=== PATIENT | female | born 1980 | race Caucasian/White ===

== ENCOUNTER 2019-12-28 22:42 | Emergency (ER) | payer MEDICAID ==
[~2019-12-28] VITALS: Ht 165.1 cm; Wt 98.9 kg
[2019-12-28 23:00] VITALS: BP 156/89
[2019-12-28] MEDS ORDERED: LIDOCAINE 2% 1000 MG/50 ML VIAL INJ ONE (23:40)
[2019-12-28 23:59] VITALS: BP 156/89
--- NOTE | 2019-12-29 00:04 | NUR ---
39 Y/O F PRESENTS TO ED C/O MOUTH PAIN X 3 DAYS. PT WAS SEEN AT [facility] ON FRIDAY REGARDING MOUTH PAIN AND WAS DIAGNOSED WITH GINGIVITIS. PT STATES THAT SHE WAS PRESCRIBED PCN BUT WITH NO RELIEF. ALSO STATES THAT HER MOUTH HAS BEEN SWOLLEN EVER SINCE AND IS NOW STARTING TO FEEL NUMBNESS AND TINGLING ON HER MOUTH. PT IS 18 WEEKS , HAVE CARE AND TAKES VITAMINS. RR EVEN AND UNLABORED. BED LOCKED AND IN LOWEST POSITION, SIDE RAIL UPX1. WILL CONTINUE TO MONITOR. MHX: DENIES ALLERGIES: IODINE
--- NOTE | 2019-12-29 00:45 | NUR ---
Patient discharged with v/s stable. Written and verbal after care instructions given and explained. Patient verbalized understanding. Ambulatory with steady gait. All questions addressed prior to discharge. Advised to follow up with PMD.
== END 2019-12-29 00:45 | disposition home or self-care (01) ==
LOC: MED 22:42
DX: O99.612 Diseases of the digestive system complicating pregnancy, second trimester (principal); K04.7 Periapical abscess without sinus; K05.10 Chronic gingivitis, plaque induced; Z3A.18 18 weeks gestation of pregnancy; Z88.8 Allergy status to other drugs, medicaments and biological substances
CPT/HCPCS: 64400; 99284; J2001

== ENCOUNTER 2020-02-05 21:32 | Emergency (ER) | payer MEDICAID ==
[~2020-02-05] VITALS: Ht 165.1 cm; Wt 100.2 kg
--- NOTE | 2020-02-05 21:32 | NUR ---
[place]. TAKEN TO BED 1
[2020-02-05 21:35] VITALS: BP 146/64
--- NOTE | 2020-02-05 21:38 | NUR ---
HEART TONE 178 BPM VIA DOPPLER.
--- NOTE | 2020-02-05 21:39 | NUR ---
20 G ON THE RIGHT HAND PLACED BY EMS EN ROUTE.
--- NOTE | 2020-02-05 21:40 | NUR ---
39 Y/O FEMALE BIBA S/PO SEIZURE. UNK TIME. PER EMS REPORT, PT WAS FOUND ON THE FLOOR. INJURY ABOVE RT EYE OBSERVED. 5 MONTHS , DUE DATE 05/2020. . PT DENIES ANY VAGINAL BLEEDING OR DISCHARGE. PT AAOX4, AMBULATORY. RESPIRATIONS EVEN AND UNLABORED TO ROOM AIR. SKIN IS WARM, DRY, INTACT. PT COMPLAINING OF NECK PAIN 5/10. FHT 178. SEIZURE PRECAUTIONS IN PLACE. MHX: EPILEPSY ALLERGIES: IODINE
--- NOTE | 2020-02-05 21:41 | NUR ---
PT REFUSES TO TAKE ANY MEDICATION FOR PAIN.
--- NOTE | 2020-02-05 21:43 | NUR ---
DR. MEAD AT BEDSIDE EVALUATING PT.
[2020-02-05 23:00] VITALS: BP 146/64
== END 2020-02-05 23:00 | disposition home or self-care (01) ==
LOC: MED 21:32
DX: O9A.212 Injury, poisoning and certain other consequences of external causes complicating pregnancy, second trimester (principal); S05.10XA Contusion of eyeball and orbital tissues, unspecified eye, initial encounter; Z88.1 Allergy status to other antibiotic agents; Z3A.20 20 weeks gestation of pregnancy; X58.XXXA Exposure to other specified factors, initial encounter; Y93.89 Activity, other specified; Y92.89 Other specified places as the place of occurrence of the external cause; Y99.8 Other external cause status
CPT/HCPCS: 81002; 81025; 99282; 99283

== ENCOUNTER 2020-03-14 11:04 | Inpatient (IN) | payer MEDICAID ==
[~2020-03-14] VITALS: Ht 165.1 cm; Wt 99.8 kg
--- NOTE | 2020-03-14 11:04 | NUR ---
PT VICKI ALS AND PLACED IN BED 4.
--- NOTE | 2020-03-14 11:06 | NUR ---
BIBA from home by ACLS with c/o tonic clonic siezure ~2 mins per family, + oral trauma. Patient is 29 weeks , G 2 P 1. Received Mag 4 mg IVP in route-->caused nausea, Magnesium drip ordered but not given. BS 123 mg/dl in the field. Postdictal, forgetful. A, A, O x 2, Allergic to Iodine, PMH siezures (doesn't remember last one "a long time ago"), nose bleeds. Well appearing 40 yo female, states yes to care. VVS, in NAD, HOB elevated, side rails padded, bed in low position. Resp even and unlabored, moving all exts w/o difficulty Awaiting evaluation/examination by Dr. Smith Will continue to monitor
[2020-03-14 11:09] VITALS: BP 138/73
--- NOTE | 2020-03-14 11:39 | NUR ---
Dr. Smith at bedside to examine patient
--- NOTE | 2020-03-14 11:49 | NUR ---
Patient more awake now, HOB elevated, side rails padded, bed in low position. GCS 15 now. A, A, O x4, cooperative, moving all exts w/o difficulty. No siezure activity noted since arrival. Able to tolerate water
--- NOTE | 2020-03-14 11:52 | NUR ---
Blood drawn, including T&C and given to laborer general. Banded for blood administration
[2020-03-14 12:07] LABS: BASOPHILS % (AUTO) 0.4 % (0.0-2.0); EOSINOPHILS # (AUTO) 0.1 K/uL (0-0.4); EOSINOPHILS % (AUTO) 0.6 % (0.0-4.0); HEMATOCRIT 40.9 % (36-48); HEMOGLOBIN 14.2 g/dL (12.0-16.0); LYMPHOCYTES # (AUTO) 1.1 K/uL (2.5-16.5); LYMPHOCYTES % (AUTO) 9.6 % (20.5-51.1); MEAN CORPUSCULAR HEMOGLOBIN 30 pg (27-31); MEAN CORPUSCULAR HGB CONC 35 g/dL (33-37); MONOCYTES # (AUTO) 0.4 K/uL (0.8-1.0); NEUTROPHILS # (AUTO) 9.4 K/uL (1.8-7.7); NEUTROPHILS % (AUTO) 85.4 % (42.2-75.2); PLATELET COUNT (AUTO) 319 K/uL (140-450); RED BLOOD CELL COUNT(AUTO) 4.75 MIL/uL (4.20-5.40); RED CELL DISTRIBUTION WIDTH 13.6 % (11.6-13.7)
[2020-03-14 12:20] LABS: ALBUMIN 2.8 g/dL (3.4-5.0); ANION GAP 14.8 (8-16); CARBON DIOXIDE 22.9 mmol/L (21-32); CREATININE 0.5 mg/dL (0.6-1.3); POTASSIUM 3.7 mmol/L (3.5-5.1); TOTAL BILIRUBIN 0.3 mg/dL (0.0-1.0)
--- NOTE | 2020-03-14 12:40 | NUR ---
Attempted to get patient to void, patient states she was incontinent during siezure. Continues to drink water, will try again for urine sample
[2020-03-14] MEDS ORDERED: LAM200 PO (13:01)
[2020-03-14] MEDS ORDERED: PREN-543 PO (13:01)
--- NOTE | 2020-03-14 13:25 | NUR ---
Patient transfered to L&D room 3 via [place]. Detailed report given to MEG Escobar at bedside for continuity of care, questions answered, orders and meds reviewed.
[2020-03-14 14:24] LABS: APPEARANCE,URINE CLEAR (CLEAR); BILIRUBIN,URINE NEGATIVE (NEGATIVE); BLOOD, URINE NEGATIVE (NEGATIVE); COLOR,URINE YELLOW (YELLOW); LEUKOCYTE ESTERASE ,URINE NEGATIVE (NEGATIVE); NITRITE, URINE NEGATIVE (NEGATIVE); UGLUCOSE NEGATIVE (NEGATIVE)
[2020-03-14] MEDS: LACTATED RINGERS 1,000 ML IV SCH ×2 (15:16→17:47)
[2020-03-14 15:19] VITALS: BP 128/68
[2020-03-14] MEDS: lamoTRIgine 25 MG TAB PO SCH (16:06)
[2020-03-14] MEDS ORDERED: ACETAMINOPHEN EXTRA STRENGTH 500 MG TAB PO PRN (19:55)
[2020-03-15] MEDS: LACTATED RINGERS 1,000 ML IV SCH (02:44)
[2020-03-15] MEDS: lamoTRIgine 25 MG TAB PO SCH (08:29)
[2020-03-15] MEDS ORDERED: LAM25 PO (08:45)
--- NOTE | 2020-03-15 08:47 | NUR ---
PATIENT HAS BEEN SCREENED AND CATEGORIZED LOW NUTRITION RISK. PATIENT WILL BE SEEN WITHIN 7 DAYS OF ADMISSION. 03/21/[address]
== END 2020-03-15 11:20 | disposition home or self-care (01) | DRG 566 ==
LOC: MED 11:04 → MLD 13:45
PROVIDERS: ADMIT Obstetrics & Gynecology; ATTEND Obstetrics & Gynecology
DX: O99.352 Diseases of the nervous system complicating pregnancy, second trimester (principal); Z20.828 Contact with and (suspected) exposure to other viral communicable diseases; G40.909 Epilepsy, unspecified, not intractable, without status epilepticus; Z3A.28 28 weeks gestation of pregnancy; Z91.041 Radiographic dye allergy status
CPT/HCPCS: 36415; 76805; 80053; 81003; 84702; 85025; 86900; 86901; 99284

== ENCOUNTER 2020-03-21 08:13 | Emergency (ER) | payer MEDICAID ==
[~2020-03-21] VITALS: Ht 165.1 cm; Wt 102.2 kg
[~2020-03-21 08:13] MED LIST: LAM200 PO; LAM25 PO; PREN-543 PO
[2020-03-21 08:18] VITALS: BP 130/99
--- NOTE | 2020-03-21 08:47 | NUR ---
40 Y/O FEMALE BIB SELF S/P SEIZURE THIS MORNING AT 4AM. PT STATES LAST SEIZURE WAS ONE WEEK AGO, AND SHE WAS ADMITTED TO HOSPITAL. PT IS 29 WEEKS , FHT 151 AT RIGHT QUADRANT. PT STATES SHE HAS BEEN HAVING MILD CONFUSION SINCE YESTERDAY AT 6PM, AND IT HAS GOTTEN WORSE SINCE SEIZURE. AAOX4. PT STATES SHE HAS MOMENTS OF CONFUSION, STATES 'I STARTED EMPTYING OUT BABY WIPES FOR NO REASON'. AMBULATORY WITH STEADY GAIT. PUPILS 2MM. NO NEURO DEFICITS AT THIS TIME. SEIZURE PRECAUTIONS IN PLACE. PMH: SEIZURES RX:LAMICTAL
--- NOTE | 2020-03-21 09:11 | NUR ---
Dr. Cox is evaluating the patient at bedside.
--- NOTE | 2020-03-21 09:19 | NUR ---
PT IS UNABLE TO VOID AT THIS TIME, WATER PROVIDED AT BEDSIDE
[2020-03-21 10:18] LABS: BASOPHILS # (AUTO) 0.1 K/uL (0.00-0.22); BASOPHILS % (AUTO) 0.8 % (0.0-2.0); EOSINOPHILS # (AUTO) 0.1 K/uL (0-0.4); EOSINOPHILS % (AUTO) 0.6 % (0.0-4.0); HEMATOCRIT 40.7 % (36-48); HEMOGLOBIN 14.1 g/dL (12.0-16.0); LYMPHOCYTES # (AUTO) 1.4 K/uL (2.5-16.5); LYMPHOCYTES % (AUTO) 11.1 % (20.5-51.1); MEAN CORPUSCULAR HEMOGLOBIN 30 pg (27-31); MEAN CORPUSCULAR HGB CONC 35 g/dL (33-37); MEAN CORPUSCULAR VOLUME 86.8 fL (80-94); MONOCYTES # (AUTO) 0.5 K/uL (0.8-1.0); MONOCYTES % (AUTO) 3.8 % (1.7-9.3); NEUTROPHILS # (AUTO) 10.8 K/uL (1.8-7.7); NEUTROPHILS % (AUTO) 83.7 % (42.2-75.2); PLATELET COUNT (AUTO) 283 K/uL (140-450); RED BLOOD CELL COUNT(AUTO) 4.69 MIL/uL (4.20-5.40); RED CELL DISTRIBUTION WIDTH 13.6 % (11.6-13.7); WHITE BLOOD COUNT (AUTO) 12.9 K/uL (4.8-10.8)
--- NOTE | 2020-03-21 10:30 | NUR ---
US AT BEDSIDE
[2020-03-21 10:40] LABS: APPEARANCE,URINE HAZY (CLEAR); BLOOD, URINE TRACE (NEGATIVE); COLOR,URINE YELLOW (YELLOW); UGLUCOSE NEGATIVE (NEGATIVE)
[2020-03-21 10:41] LABS: BILIRUBIN,URINE NEGATIVE (NEGATIVE); LEUKOCYTE ESTERASE ,URINE TRACE (NEGATIVE); NITRITE, URINE NEGATIVE (NEGATIVE)
[2020-03-21 10:42] LABS: RBC,URINE NONE SEEN /HPF (0-5)
[2020-03-21 10:44] LABS: ANION GAP 13.4 (8-16); CARBON DIOXIDE 24.4 mmol/L (21-32); POTASSIUM 3.8 mmol/L (3.5-5.1)
[2020-03-21 10:45] LABS: ALBUMIN 2.8 g/dL (3.4-5.0); CREATININE 0.5 mg/dL (0.6-1.3); TOTAL BILIRUBIN 0.3 mg/dL (0.0-1.0)
[2020-03-21 10:50] LABS: BARBITURATE, URINE NEGATIVE ng/ml (NEG <=200); BENZODIAZEPINE, URINE NEGATIVE ng/mL (NEG <=200); CANNABINOID, URINE NEGATIVE ng/mL (NEG <=50); COCAINE, URINE NEGATIVE ng/mL (NEG <=300); OPIATE, URINE NEGATIVE ng/mL (NEG <=2000); PHENCYCLIDINE SCREEN,URINE NEGATIVE ng/mL (NEG <=25)
--- NOTE | 2020-03-21 11:43 | NUR ---
PT IS RESTING IN BED, AROUSABLE TO VERBAL STIMULI. VSS
--- NOTE | 2020-03-21 11:52 | NUR ---
Dr. Cox is evaluating the patient at bedside.
[2020-03-21 12:15] VITALS: BP 121/79
== END 2020-03-21 12:15 | disposition home or self-care (01) ==
LOC: MED 08:13
DX: O99.352 Diseases of the nervous system complicating pregnancy, second trimester (principal); O23.42 Unspecified infection of urinary tract in pregnancy, second trimester; Z88.8 Allergy status to other drugs, medicaments and biological substances; Z79.899 Other long term (current) drug therapy
CPT/HCPCS: 36415; 76815; 80053; 80305; 81001; 85025; 87086; 99284; 99285